=== PATIENT | male | born 1960 | race Caucasian/White ===

== ENCOUNTER 2019-05-28 21:04 | Inpatient (IN) | payer OTHER ==
[2019-05-28 22:01] VITALS: BMI 28.0
--- NOTE | 2019-05-28 23:27 | HP ---
CIWA Score Nausea/Vomitin-Mild Nausea/No Vomiting Muscle Tremors: 3 Anxiety: 2 Agitation: 2 Paroxysmal Sweats: 2 Orientation: 0-Oriented Tacttile Disturbances: 2-Mild Itch/Numbness/Burn Auditory Disturbances: 2-Mild Harshness/Frighten Visual Disturbances: 2-Mild Sensitivity Headache: 2-Mild CIWA-Ar Total Score: 18 - Admission Criteria OASAS Guidelines: Admission for Medically Managed Detox: Requires at least one of the followin. CIWA greater than 12 2. Seizures within the past 24 hours 3. Delirium tremens within the past 24 hours 4. Hallucinations within the past 24 hours 5. Acute intervention needed for co occurring medical disorder 6. Acute intervention needed for co occurring psychiatric disorder 7. Severe withdrawal that cannot be handled at a lower level of care (continued vomiting, continued diarrhea, abnormal vital signs) requiring intravenous medication and/or fluids 8. Admitting History and Physical - Admission History Source: Patient Limitations to Obtaining History: No Limitations - Past Medical History Cardiovascular: Yes: HTN - Past Surgical History Past Surgical History: Yes: None Admission ROS BHS - HPI Chief Complaint: DEPENDENT ON ETOH ONLY HE CLAIMS THAT THIS IS HIS FIRST DETOX Allergies/Adverse Reactions: Allergies Allergy/AdvReac Type Severity Reaction Status Date / Time No Known Allergies Allergy Verified 05/28/19 21:55 History of Present Illness: THE PT. IS REQUESTING ADMISSION TO THE DETOX UNIT AND CAME FOR MEDICAL CLEARANCE. Exam Limitations: No Limitations - Ebola screening Have you traveled outside of the country in the last 21 days: No (N) Have you had contact with anyone from an Ebola affected area: No Have you been sick,other than usual withdrawal symptoms: No Do you have a fever: No - Review of Systems Constitutional: See HPI, Malaise, Weakness EENT: reports: See HPI Respiratory: reports: See HPI Cardiac: reports: See HPI GI: reports: See HPI, Nausea, Abdominal cramping : reports: See HPI Musculoskeletal: reports: See HPI, Muscle Pain, Muscle Weakness Integumentary: reports: See HPI Neuro: reports: See HPI, Headache, Tremors, Weakness Endocrine: reports: See HPI, Increased Thirst Hematology: reports: See HPI Psychiatric: reports: Judgement Intact, Orientated x3, Anxious, Depressed Patient History - Patient Medical History Hx Hypertension: Yes Hx Diabetes: Yes (TYPE II) Hx Human Immunodeficiency Virus (HIV): No Hx Hepatitis C: No Hx Depression: No - Patient Surgical History Past Surgical History: No - Smoking Cessation Smoking history: Never smoked Hx Chewing Tobacco Use: No Initiated information on smoking cessation: No 'Breaking Loose' booklet given: 05/28/19 - Substance & Tx. History Hx Alcohol Use: Yes Hx Substance Use: No Substance Use Type: Alcohol Hx Substance Use Treatment: No - Substances abused Alcohol Substance route: Oral Frequency: Daily Amount used: 10 beers Age of first use: 14 Date of last use: 05/28/19 Admission Physical Exam [facility] - Vital Signs Vital Signs: Vital Signs - 24 hr 05/28/19 21:55 Temperature 96.0 F L Pulse Rate 65 Respiratory 16 Rate Blood Pressure 143/92 - Physical General Appearance: Yes: No Apparent Distress, Nourished, Appropriately Dressed , Alcohol on Breath, Tremorous, Anxious HEENTM: Yes: Hearing grossly Normal, Normocephalic, Normal Voice, MYRON, Pharynx Normal Respiratory: Yes: Chest Non-Tender, Lungs Clear, Normal Breath Sounds, No Respiratory Distress, No Accessory Muscle Use Neck: Yes: No masses,lesions,Nodules, Supple, Trachea in good position Breast: Yes: Breast Exam Deferred, Axillae without masses Cardiology: Yes: Regular Rhythm, Regular Rate, S1, S2 Abdominal: Yes: Normal Bowel Sounds, Non Tender, Soft, Protuberent Back: Yes: Normal Inspection Musculoskeletal: Yes: full range of Motion, Gait Steady, Pelvis Stable, Muscle Pain, Muscle weakness Extremities: Yes: Normal Capillary Refill, Normal Range of Motion, Non-Tender, Tremors Neurological: Yes: 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 - Detox or Rehab [facility] Level of Care: Medically Supervised Detox Regimen/Protocol: Librium Breathalyzer - Breathalyzer Breathalyzer: 0.064 Inpatient Rehab Admission - Rehab Decision to Admit Inpatient rehab admission?: No
[2019-05-28] MEDS ORDERED: MAGNESIUM HYDROX 2400MG/30ML ORAL SUSPENSION 30 ML CUP PO PRN (23:34)
[2019-05-28] MEDS ORDERED: chlordiazePOXIDE HCL 25 MG CAPSULE PO ONE (23:34)
[2019-05-28] MEDS ORDERED: BISMUTH SUBSALICYLATE 524 MG/30 ML UD PO PRN (23:34)
[2019-05-28] MEDS ORDERED: chlordiazePOXIDE HCL 25 MG CAPSULE PO PRN (23:34)
[2019-05-28] MEDS ORDERED: MAG HYDROX/AL HYDROX/SIMETH 30 ML UNIT-DOSE CUP PO PRN (23:34)
[2019-05-28] MEDS ORDERED: METHOCARBAMOL 500 MG TABLET PO PRN (23:34)
[2019-05-28] MEDS ORDERED: MAGNESIUM CITRATE 300 ML BOTTLE PO PRN (23:34)
[2019-05-28] MEDS ORDERED: MENTHOL/PHENOL 1 EACH UD MM PRN (23:34)
[2019-05-28] MEDS ORDERED: hydrOXYzine PAMOATE 25 MG CAPSULE (FP) PO PRN (23:34)
[2019-05-28] MEDS ORDERED: IBUPROFEN 400 MG TABLET (FP) PO PRN (23:34)
[2019-05-28] MEDS ORDERED: ACETAMINOPHEN 325 MG TABLET (FP) PO PRN ×2 (23:34)
[2019-05-29] MEDS: chlordiazePOXIDE HCL 25 MG CAPSULE PO SCH ×5 (01:06→22:41)
[2019-05-29] MEDS: metFORMIN HCL 500 MG TABLET (FP) PO SCH ×3 (06:35→17:19)
[2019-05-29] MEDS: glipiZIDE 5 MG TABLET (FP) PO SCH (07:57)
--- NOTE | 2019-05-29 09:45 | PN ---
[facility] CIWA - CIWA Score Nausea/Vomitin-Mild Nausea/No Vomiting Muscle Tremors: 4-Moderate,w/Arms Extend Anxiety: 4-Mod. Anxious/Guarded Agitation: 2 Paroxysmal Sweats: 2 Orientation: 1-Uncertain about Date (date of the week) Tacttile Disturbances: 0-None Auditory Disturbances: 1-Very Mild Visual Disturbances: 0-None Headache: 1-Very Mild CIWA-Ar Total Score: 16 BHS Progress Note (SOAP) Subjective: 59 years old male admitted on 05/28/19 for alcohol withdrawal sx management treated with librium detox regimen tolerate well at this time long history of gerd begin pepcid bid bentyle 20 mg po x 1 Objective: 05/29/19 09:42 Vital Signs Temperature 96.4 F L 05/29/19 09:06 Pulse Rate 107 H 05/29/19 09:06 Respiratory Rate 18 05/29/19 09:06 Blood Pressure 151/89 05/29/19 09:06 O2 Sat by Pulse Oximetry (%) Laboratory Last Values POC Glucometer 212 UNITS (80-120) 05/29/19 06:22 05/29/19 09:42 lab pending Assessment: 05/29/19 09:44 alcohol withdrawal sx discontinue motrin bentyle 20mg po x 1 pepcide 20 mg po bid clonidine 0.1 mg po q6h prn for bp elevation Plan: continue librium detox regimen
[2019-05-29] MEDS ORDERED: DICYCLOMINE HCL 10 MG CAPSULE PO ONE (10:00)
[2019-05-29] MEDS ORDERED: DICYCLOMINE HCL 20 MG TABLET PO ONE (10:00)
[2019-05-29 10:04] LABS: HEMATOCRIT 36.8 % (35.4-49); HEMOGLOBIN 12.6 GM/dL (11.7-16.9); MCH 30.1 pg (25.7-33.7); MCHC 34.4 g/dl (32.0-35.9); MEAN CELL VOLUME 87.5 fl (80-96); MEAN PLT VOLUME 9.1 fl (7.5-11.1); PLATELET COUNT 250 K/MM3 (134-434); RDW 12.9 % (11.9-15.9); WHITE BLOOD COUNT 11.9 K/mm3 (4.0-10.0)
[2019-05-29 10:16] LABS: ALBUMIN 3.3 g/dl (3.4-5.0); BILIRUBIN,TOTAL 0.3 mg/dL (0.2-1); BLOOD UREA NITROGEN 26.2 mg/dL (7-18); CALCIUM 8.7 mg/dL (8.5-10.1); CREATININE 1.2 mg/dL (0.55-1.3); POTASSIUM 4.7 mmol/L (3.5-5.1); TOT PROT 6.8 g/dl (6.4-8.2)
[2019-05-29] MEDS: PRENATAL VITAMINS W/ FOLIC ACID TABLET (FP) PO SCH (10:50)
[2019-05-29] MEDS: FAMOTIDINE 20 MG TABLET PO SCH ×2 (10:51→22:41)
[2019-05-29] MEDS: cloNIDine HCL 0.1 MG TABLET PO PRN ×2 (10:52→17:21)
[2019-05-29] MEDS: THIAMINE HCL 100 MG TABLET (FP) PO SCH (22:41)
[2019-05-29] MEDS: MELATONIN 5 MG TABLETS PO PRN (22:42)
[2019-05-30] MEDS: chlordiazePOXIDE HCL 25 MG CAPSULE PO SCH ×5 (05:46→22:13)
[2019-05-30] MEDS: glipiZIDE 5 MG TABLET (FP) PO SCH (06:16)
[2019-05-30] MEDS: metFORMIN HCL 500 MG TABLET (FP) PO SCH ×2 (06:17→17:01)
[2019-05-30] MEDS: PRENATAL VITAMINS W/ FOLIC ACID TABLET (FP) PO SCH (10:14)
[2019-05-30] MEDS: FAMOTIDINE 20 MG TABLET PO SCH ×2 (10:14→22:13)
[2019-05-30] MEDS ORDERED: ONDANSETRON *ODT* 4 MG TABLET SL ONE (10:32)
--- NOTE | 2019-05-30 13:16 | PN ---
[facility] CIWA - CIWA Score Nausea/Vomitin-Mild Nausea/No Vomiting Muscle Tremors: 3 Anxiety: 3 Agitation: 2 Paroxysmal Sweats: 1-Minimal Palms Moist Orientation: 0-Oriented Tacttile Disturbances: 1-Very Mild Itch/Numbness Auditory Disturbances: 0-None Visual Disturbances: 0-None Headache: 0-None Present CIWA-Ar Total Score: 11 S Progress Note (SOAP) Subjective: 59 years old male admitted on 05/28/19 for alcohol withdrawal sx management treated with librium detox regimen patient tolerate well ambulating on hallway patient reported that he is living in [facility] for many months and would like return to [facility] after detox report feeling better today less tremor and sleep better at night Objective: 05/30/19 13:15 Vital Signs Temperature 96.8 F L 05/30/19 09:16 Pulse Rate 68 05/30/19 09:16 Respiratory Rate 18 05/30/19 09:16 Blood Pressure 139/86 05/30/19 09:16 O2 Sat by Pulse Oximetry (%) Laboratory Last Values WBC 11.9 K/mm3 (4.0-10.0) H 05/29/19 07:40 RBC 4.20 M/mm3 (4.00-5.60) 05/29/19 07:40 Hgb 12.6 GM/dL (11.7-16.9) 05/29/19 07:40 Hct 36.8 % (35.4-49) 05/29/19 07:40 MCV 87.5 fl (80-96) 05/29/19 07:40 MCH 30.1 pg (25.7-33.7) 05/29/19 07:40 MCHC 34.4 g/dl (32.0-35.9) 05/29/19 07:40 RDW 12.9 % (11.9-15.9) 05/29/19 07:40 Plt Count 250 K/MM3 (134-434) 05/29/19 07:40 MPV 9.1 fl (7.5-11.1) 05/29/19 07:40 Sodium 134 mmol/L (136-145) L 05/29/19 07:40 Potassium 4.7 mmol/L (3.5-5.1) 05/29/19 07:40 Chloride 105 mmol/L (98-107) 05/29/19 07:40 Carbon Dioxide 18 mmol/L (21-32) L 05/29/19 07:40 Anion Gap 10 MMOL/L (8-16) 05/29/19 07:40 BUN 26.2 mg/dL (7-18) H 05/29/19 07:40 Creatinine 1.2 mg/dL (0.55-1.3) 05/29/19 07:40 Est GFR (CKD-EPI)AfAm 76.25 05/29/19 07:40 Est GFR (CKD-EPI)NonAf 65.79 05/29/19 07:40 POC Glucometer 232 UNITS (80-120) 05/30/19 05:45 Random Glucose 197 mg/dL (74-106) H 05/29/19 07:40 Calcium 8.7 mg/dL (8.5-10.1) 05/29/19 07:40 Total Bilirubin 0.3 mg/dL (0.2-1) 05/29/19 07:40 AST 22 U/L (15-37) 05/29/19 07:40 ALT 38 U/L (13-61) 05/29/19 07:40 Alkaline Phosphatase 137 U/L (45-117) H 05/29/19 07:40 Total Protein 6.8 g/dl (6.4-8.2) 05/29/19 07:40 Albumin 3.3 g/dl (3.4-5.0) L 05/29/19 07:40 RPR Titer Nonreactive (NONREACTIVE) 05/29/19 07:40 lab noted encourage oral fluid Assessment: 05/30/19 13:16 alcohol withdrawal sx Plan: continue librium detox regimen
[2019-05-30] MEDS ORDERED: ONDANSETRON *ODT* 4 MG TABLET SL PRN (14:30)
[2019-05-30] MEDS: GABAPENTIN 100 MG CAPSULE (FP) PO SCH ×2 (14:55→22:12)
[2019-05-30] MEDS: guaiFENesin 600 MG TABLET.ER (FP) PO SCH (22:12)
[2019-05-30] MEDS: THIAMINE HCL 100 MG TABLET (FP) PO SCH (22:12)
[2019-05-30] MEDS: MELATONIN 5 MG TABLETS PO PRN (22:15)
[2019-05-31] MEDS ORDERED: chlordiazePOXIDE HCL 10 MG CAPSULE PO PRN
[2019-05-31] MEDS: GABAPENTIN 100 MG CAPSULE (FP) PO SCH ×3 (05:39→22:42)
[2019-05-31] MEDS: chlordiazePOXIDE HCL 10 MG CAPSULE PO SCH ×4 (05:39→22:42)
[2019-05-31] MEDS: metFORMIN HCL 500 MG TABLET (FP) PO SCH ×2 (06:49→17:13)
[2019-05-31] MEDS: glipiZIDE 5 MG TABLET (FP) PO SCH (06:49)
[2019-05-31] MEDS: PRENATAL VITAMINS W/ FOLIC ACID TABLET (FP) PO SCH (10:27)
[2019-05-31] MEDS: guaiFENesin 600 MG TABLET.ER (FP) PO SCH ×2 (10:27→22:42)
[2019-05-31] MEDS: FAMOTIDINE 20 MG TABLET PO SCH ×2 (10:28→22:42)
--- NOTE | 2019-05-31 11:07 | EKG ---
Test Reason : Blood Pressure : / mmHG Vent. Rate : 103 BPM Atrial Rate : 103 BPM P-R Int : 168 ms QRS Dur : 140 ms QT Int : 376 ms P-R-T Axes : 114 081 135 degrees QTc Int : 492 ms SINUS TACHYCARDIA WITH PREMATURE ATRIAL COMPLEXES RIGHT BUNDLE BRANCH BLOCK ABNORMAL ECG NO PREVIOUS ECGS AVAILABLE Confirmed by Tenzin Frye MD ([id number]) on 05/31/2019 11:06:59 AM Referred By: Shane Andujar Confirmed By:Tenzin Frye MD
--- NOTE | 2019-05-31 14:43 | PN ---
[facility] CIWA - CIWA Score Nausea/Vomitin-No Nausea/No Vomiting Muscle Tremors: 2 Anxiety: 2 Agitation: 2 Paroxysmal Sweats: 1-Minimal Palms Moist Orientation: 1-Uncertain about Date (date of week) Tacttile Disturbances: 1-Very Mild Itch/Numbness Auditory Disturbances: 0-None Visual Disturbances: 0-None Headache: 0-None Present CIWA-Ar Total Score: 9 S Progress Note (SOAP) Subjective: 59 years old male admitted on 05/28/19 for alcohol with drawal sx management treated with librium detox regimen patient prefers [facility] one month hypertension and diabetes and neuropathy medication sent to [facility] patient will [facility] medication before going to [facility] Objective: 05/31/19 14:43 Vital Signs Temperature 95.6 F L 05/31/19 13:43 Pulse Rate 94 H 05/31/19 13:43 Respiratory Rate 18 05/31/19 13:43 Blood Pressure 152/95 05/31/19 13:43 O2 Sat by Pulse Oximetry (%) Laboratory Last Values WBC 11.9 K/mm3 (4.0-10.0) H 05/29/19 07:40 RBC 4.20 M/mm3 (4.00-5.60) 05/29/19 07:40 Hgb 12.6 GM/dL (11.7-16.9) 05/29/19 07:40 Hct 36.8 % (35.4-49) 05/29/19 07:40 MCV 87.5 fl (80-96) 05/29/19 07:40 MCH 30.1 pg (25.7-33.7) 05/29/19 07:40 MCHC 34.4 g/dl (32.0-35.9) 05/29/19 07:40 RDW 12.9 % (11.9-15.9) 05/29/19 07:40 Plt Count 250 K/MM3 (134-434) 05/29/19 07:40 MPV 9.1 fl (7.5-11.1) 05/29/19 07:40 Sodium 134 mmol/L (136-145) L 05/29/19 07:40 Potassium 4.7 mmol/L (3.5-5.1) 05/29/19 07:40 Chloride 105 mmol/L (98-107) 05/29/19 07:40 Carbon Dioxide 18 mmol/L (21-32) L 05/29/19 07:40 Anion Gap 10 MMOL/L (8-16) 05/29/19 07:40 BUN 26.2 mg/dL (7-18) H 05/29/19 07:40 Creatinine 1.2 mg/dL (0.55-1.3) 05/29/19 07:40 Est GFR (CKD-EPI)AfAm 76.25 05/29/19 07:40 Est GFR (CKD-EPI)NonAf 65.79 05/29/19 07:40 POC Glucometer 451 UNITS (80-120) 05/31/19 05:38 Random Glucose 197 mg/dL (74-106) H 05/29/19 07:40 Calcium 8.7 mg/dL (8.5-10.1) 05/29/19 07:40 Total Bilirubin 0.3 mg/dL (0.2-1) 05/29/19 07:40 AST 22 U/L (15-37) 05/29/19 07:40 ALT 38 U/L (13-61) 05/29/19 07:40 Alkaline Phosphatase 137 U/L (45-117) H 05/29/19 07:40 Total Protein 6.8 g/dl (6.4-8.2) 05/29/19 07:40 Albumin 3.3 g/dl (3.4-5.0) L 05/29/19 07:40 RPR Titer Nonreactive (NONREACTIVE) 05/29/19 07:40 lab noted bp elevation begin amlodipine 10 mg po 05/31/19 14:46 Assessment: 05/31/19 14:47 alcohol withdrawal sx Plan: continue libirum detox regimen
[2019-05-31] MEDS: amLODIPine BESYLATE 10 MG TABLET (FP) PO SCH (15:55)
[2019-05-31] MEDS: cloNIDine HCL 0.1 MG TABLET PO PRN (17:15)
[2019-05-31] MEDS: THIAMINE HCL 100 MG TABLET (FP) PO SCH (22:42)
[2019-06-01] MEDS: GABAPENTIN 100 MG CAPSULE (FP) PO SCH ×3 (05:53→22:39)
[2019-06-01] MEDS: chlordiazePOXIDE HCL 10 MG CAPSULE PO SCH ×2 (05:53→17:34)
[2019-06-01] MEDS: metFORMIN HCL 500 MG TABLET (FP) PO SCH ×2 (06:50→17:34)
[2019-06-01] MEDS: glipiZIDE 5 MG TABLET (FP) PO SCH (06:51)
--- NOTE | 2019-06-01 08:44 | PN ---
[facility] CIWA - CIWA Score Nausea/Vomitin-No Nausea/No Vomiting Muscle Tremors: 2 Anxiety: 2 Agitation: 2 Paroxysmal Sweats: No Perspiration Orientation: 0-Oriented Tacttile Disturbances: 0-None Auditory Disturbances: 0-None Visual Disturbances: 0-None Headache: 0-None Present CIWA-Ar Total Score: 6 BHS Progress Note (SOAP) Subjective: bgm elevation increase metformin to 1000mg po bid 59 years old male admitted on 06/02/19 for alcohol withdrawal sx management treated with librium detox regimen patient tolerated well patient is going to [facility] month medication ordered to [facility] pharmacy as well as [facility] pharmacy due to patient can not decide going home or go to [facility] Objective: 06/01/19 13:08 Vital Signs Temperature 96.1 F L 06/01/19 09:07 Pulse Rate 98 H 06/01/19 09:07 Respiratory Rate 18 06/01/19 09:07 Blood Pressure 126/87 06/01/19 09:07 O2 Sat by Pulse Oximetry (%) Laboratory Last Values WBC 11.9 K/mm3 (4.0-10.0) H 05/29/19 07:40 RBC 4.20 M/mm3 (4.00-5.60) 05/29/19 07:40 Hgb 12.6 GM/dL (11.7-16.9) 05/29/19 07:40 Hct 36.8 % (35.4-49) 05/29/19 07:40 MCV 87.5 fl (80-96) 05/29/19 07:40 MCH 30.1 pg (25.7-33.7) 05/29/19 07:40 MCHC 34.4 g/dl (32.0-35.9) 05/29/19 07:40 RDW 12.9 % (11.9-15.9) 05/29/19 07:40 Plt Count 250 K/MM3 (134-434) 05/29/19 07:40 MPV 9.1 fl (7.5-11.1) 05/29/19 07:40 Sodium 134 mmol/L (136-145) L 05/29/19 07:40 Potassium 4.7 mmol/L (3.5-5.1) 05/29/19 07:40 Chloride 105 mmol/L (98-107) 05/29/19 07:40 Carbon Dioxide 18 mmol/L (21-32) L 05/29/19 07:40 Anion Gap 10 MMOL/L (8-16) 05/29/19 07:40 BUN 26.2 mg/dL (7-18) H 05/29/19 07:40 Creatinine 1.2 mg/dL (0.55-1.3) 05/29/19 07:40 Est GFR (CKD-EPI)AfAm 76.25 05/29/19 07:40 Est GFR (CKD-EPI)NonAf 65.79 05/29/19 07:40 POC Glucometer 508 UNITS (80-120) 06/01/19 05:54 Random Glucose 197 mg/dL (74-106) H 05/29/19 07:40 Calcium 8.7 mg/dL (8.5-10.1) 05/29/19 07:40 Total Bilirubin 0.3 mg/dL (0.2-1) 05/29/19 07:40 AST 22 U/L (15-37) 05/29/19 07:40 ALT 38 U/L (13-61) 05/29/19 07:40 Alkaline Phosphatase 137 U/L (45-117) H 05/29/19 07:40 Total Protein 6.8 g/dl (6.4-8.2) 05/29/19 07:40 Albumin 3.3 g/dl (3.4-5.0) L 05/29/19 07:40 RPR Titer Nonreactive (NONREACTIVE) 05/29/19 07:40 lab noted Assessment: 06/01/19 13:09 alcohol withdrawal sx Plan: continue librium detox regimen
[2019-06-01] MEDS: PRENATAL VITAMINS W/ FOLIC ACID TABLET (FP) PO SCH (10:38)
[2019-06-01] MEDS: guaiFENesin 600 MG TABLET.ER (FP) PO SCH ×2 (10:38→22:39)
[2019-06-01] MEDS: amLODIPine BESYLATE 10 MG TABLET (FP) PO SCH (10:38)
[2019-06-01] MEDS: FAMOTIDINE 20 MG TABLET PO SCH ×2 (10:38→22:39)
[2019-06-01] MEDS: cloNIDine HCL 0.1 MG TABLET PO PRN (22:39)
[2019-06-01] MEDS: THIAMINE HCL 100 MG TABLET (FP) PO SCH (22:39)
[2019-06-02] MEDS ORDERED: chlordiazePOXIDE HCL 10 MG CAPSULE PO ONE (05:00)
[2019-06-02] MEDS: GABAPENTIN 100 MG CAPSULE (FP) PO SCH (05:50)
[2019-06-02] MEDS: metFORMIN HCL 500 MG TABLET (FP) PO SCH (07:58)
[2019-06-02] MEDS: glipiZIDE 5 MG TABLET (FP) PO SCH (07:58)
[2019-06-02 09:18] VITALS: BP 136/80; PULSE 75; TEMP 96.6
[2019-06-02] MEDS: amLODIPine BESYLATE 10 MG TABLET (FP) PO SCH (10:16)
[2019-06-02] MEDS: FAMOTIDINE 20 MG TABLET PO SCH (10:16)
[2019-06-02] MEDS: guaiFENesin 600 MG TABLET.ER (FP) PO SCH (10:17)
[2019-06-02] MEDS: PRENATAL VITAMINS W/ FOLIC ACID TABLET (FP) PO SCH (10:17)
--- NOTE | 2019-06-02 14:10 | DS ---
[facility] Detox Discharge Summary Admission Date: 05/28/19 Discharge Date: 06/02/19 - History Present History: Alcohol Dependence Additional Comments: 59 years old male admitted on 05/28/19 for alcohol withdrawal sx management treated with librium detox regimen patient tolerate well patient is alert oriented x 3 respiratory clear lung bilaterally on auscultation extremities full range of motion skin warm dry - Physical Exam Results Vital Signs: Vital Signs Temperature 96.6 F L 06/02/19 09:17 Pulse Rate 75 06/02/19 09:17 Respiratory Rate 18 06/02/19 09:17 Blood Pressure 136/80 06/02/19 09:17 O2 Sat by Pulse Oximetry (%) Pertinent Admission Physical Exam Findings: alcohol withdrawal sx Laboratory Last Values WBC 11.9 K/mm3 (4.0-10.0) H 05/29/19 07:40 RBC 4.20 M/mm3 (4.00-5.60) 05/29/19 07:40 Hgb 12.6 GM/dL (11.7-16.9) 05/29/19 07:40 Hct 36.8 % (35.4-49) 05/29/19 07:40 MCV 87.5 fl (80-96) 05/29/19 07:40 MCH 30.1 pg (25.7-33.7) 05/29/19 07:40 MCHC 34.4 g/dl (32.0-35.9) 05/29/19 07:40 RDW 12.9 % (11.9-15.9) 05/29/19 07:40 Plt Count 250 K/MM3 (134-434) 05/29/19 07:40 MPV 9.1 fl (7.5-11.1) 05/29/19 07:40 Sodium 134 mmol/L (136-145) L 05/29/19 07:40 Potassium 4.7 mmol/L (3.5-5.1) 05/29/19 07:40 Chloride 105 mmol/L (98-107) 05/29/19 07:40 Carbon Dioxide 18 mmol/L (21-32) L 05/29/19 07:40 Anion Gap 10 MMOL/L (8-16) 05/29/19 07:40 BUN 26.2 mg/dL (7-18) H 05/29/19 07:40 Creatinine 1.2 mg/dL (0.55-1.3) 05/29/19 07:40 Est GFR (CKD-EPI)AfAm 76.25 05/29/19 07:40 Est GFR (CKD-EPI)NonAf 65.79 05/29/19 07:40 POC Glucometer 388 UNITS (80-120) 06/02/19 05:51 Random Glucose 197 mg/dL (74-106) H 05/29/19 07:40 Calcium 8.7 mg/dL (8.5-10.1) 05/29/19 07:40 Total Bilirubin 0.3 mg/dL (0.2-1) 05/29/19 07:40 AST 22 U/L (15-37) 05/29/19 07:40 ALT 38 U/L (13-61) 05/29/19 07:40 Alkaline Phosphatase 137 U/L (45-117) H 05/29/19 07:40 Total Protein 6.8 g/dl (6.4-8.2) 05/29/19 07:40 Albumin 3.3 g/dl (3.4-5.0) L 05/29/19 07:40 RPR Titer Nonreactive (NONREACTIVE) 05/29/19 07:40 lab noted - Treatment Hospital Course: Detox Protocol Followed, Detoxed Safely, Responded well, Discharged Condition Good, Rehab Referral Accepted Patient has Accepted a Rehab Referral to: [facility] - Medication Discharge Medications: Ambulatory Orders Amlodipine Besylate [Norvasc -] 10 mg PO DAILY #30 tablet 05/31/19 Famotidine [Pepcid -] 20 mg PO BID #60 tablet 05/31/19 Gabapentin [Neurontin -] 100 mg PO TID #90 capsule 05/31/19 Glipizide 5 mg PO DAILY #30 tablet 05/31/19 metFORMIN HCL [Glucophage -] 1,000 mg PO BIDAC #60 tablet 06/01/19 - Diagnosis (1) Diabetes 1.5, managed as type 2 Status: Chronic (2) EtOH dependence Status: Acute Qualifiers: Substance use status: uncomplicated Qualified Code(s): F10.20 - Alcohol dependence, uncomplicated (3) HTN (hypertension) Status: Chronic Qualifiers: Hypertension type: essential hypertension Qualified Code(s): I10 - Essential (primary) hypertension - AMA Did Patient Leave Against Medical Advice: No CIWA Score - CIWA Score Nausea/Vomitin-No Nausea/No Vomiting Muscle Tremors: 1-None Visible, but [place] Anxiety: 1-Mildly Anxious Agitation: 1-Slight > Activity Paroxysmal Sweats: No Perspiration Orientation: 0-Oriented Tacttile Disturbances: 0-None Auditory Disturbances: 0-None Visual Disturbances: 0-None Headache: 0-None Present CIWA-Ar Total Score: 3
== END 2019-06-02 11:47 | disposition home or self-care (01) | DRG 775 ==
LOC: YASAS 21:04 → Y3N 23:59
PROVIDERS: ADMIT Allergy & Immunology; ATTEND Allergy & Immunology
PROC: HZ2ZZZZ Detoxification Services for Substance Abuse Treatment (ICD-10-PCS; principal; 2019-05-28)
DX: F10.230 Alcohol dependence with withdrawal, uncomplicated (principal); I10 Essential (primary) hypertension; E11.9 Type 2 diabetes mellitus without complications; Z79.84 Long term (current) use of oral hypoglycemic drugs
CPT/HCPCS: 36415; 80053; 82962; 85027; 86593; 93005; 93010; J0735